=== PATIENT | male | born 1960 | race Caucasian/White ===

== ENCOUNTER 2025-04-28 11:00 | Outpatient (CLI) | payer BC, SELFPAY ==
--- OUTSIDE RECORDS SUMMARY | 2025-04-28 11:05 | XMS_ITS | Encounter Summary ---
Author Organization [facility] Address [address] [place] [address] Care Team Providers Care Frame Polisher Name Role Phone Unavailable Primary Care Provider Unavailabl e Encounter Details Date Type Department Care Team (Late st Contact Info) Description 02/22/2025 Lab Requisition [facility] - DermPath Lab [address] [facility], [place] [address] Berna Rodas MD [address] [facility] 3 [place] [address] Social History Tobacco Use Types Packs/Day Years Used Date Smoking Tobacco: Never Assessed Sex and Gender Information Value Date Recorded Sex Assigned at Not on file Legal Sex Male 10:11 AM CDT Gender Identity Not on file Sexual Orientation Not on file documented as of this encounter Plan of Treatment Not on file documented as of this encounter Procedures Procedure Name Priority Date/Time Associated Diagnosis Comments DERMATOPATHOLOGY Routine 02/22/2025 9:51 AM CDT documented in this encounter Results * DERMATOPATHOLOGY (02/22/2025 9:51 AM CDT) Case Report Dermatopathology Report Case: [id number] Authorizing Provider: Berna Rodas MD Collected: 02/22/2025 09:51 AM Ordering Location: [facility] Physician [facility] - Received: 02/23/2025 10:20 AM DermPath Lab Pathologist: Anika Laurent MD Specimen: Skin, left index finger 11:36 AM CDT DERMATOPATHOLOGY LABORATORY Final Diagnosis Specimen A. 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 The specimen consists of a punch biopsy measuring 3x3x3 mm. Jar 0. 11:36 AM CDT DERMATOPATHOLOGY LABORATORY Microscopic Description Specimen A. SKIN, left index finger: There is psoriasiform hyperplasia of the epidermis with focal parakeratosis and spongiosis. Scattered intracorneal neutrophils as well as intracorneal bacteria are present. The granular layer is focally diminished. There is a superficial, mainly lymphohistiocytic inflammatory infiltrate. Periodic acid-Tana (PAS) stain fails to highlight fungal elements in the available sections. IL-36 immunostain is positive in the superficial aspect of the epidermis. Additional deeper sections were obtained and reviewed. COMMENT: The histological differential diagnosis includes early / partially treated psoriasis with impetiginization, which is somewhat favored, and a chronic eczematous dermatitis. 11:36 AM CDT DERMATOPATHOLOGY LABORATORY Disclaimer An external and internal positive and negative controls are appropriate for the histochemical, immunohistochemical and immunofluorescence stain(s) in this case (if any), except where stated explicitly. The performance characteristics of the stain(s) cited in this report were developed and its performance characteristic determined by the Dermatopathology Laboratory at [facility], directed by Dr. Karolina Rodriguez. These tests need not be, and therefore are not, approved by the [place] Food and Drug Administration. The tests are used for clinical purposes. Billing Codes Specimen Charges Stain Charges 44357 1 18646 04357 1 1 11:36 AM CDT DERMATOPATHOLOGY LABORATORY Embedded Images 11:36 AM CDT DERMATOPATHOLOGY LABORATORY Pathology/Cytolo gy TISSUE SPECIMEN FROM SKIN / Unknown 02/22/2025 9:51 AM CDT 02/23/2025 10:20 AM CDT us Berna Rodas MD LAB - PATHOLOGY/CYTOLOGY OR DERABLES Final Result DERMATOPATHOLOGY LABORATORY [facility] - Department of Dermatology [address], [address] [place] [address], [facility] [phone] documented in this encounter Visit Diagnoses Not on filedocumented in this encounter
--- OUTSIDE RECORDS SUMMARY | 2025-04-28 11:06 | XMS_ITS | Clinical Summary ---
Author Organization [facility] Address [address] [place] [address] Care Team Providers Care Licensed Weigher Name Role Phone Unavailable Primary Care Provider Unavailabl e Source Comments [facility],non-owned Affiliates and Associated Physician Practices is amultiple site organization consisting of ambulatory clinics and hospital sitesin [place], [place], [place] and [place]. This disclosure is being madepursuant to the Care Everywhere program and may not contain all information available regarding this patient. Last updated 18.[facility] Encounters Date Type Department Care Team Description 02/22/2025 Lab Requisition [facility] - DermPath Lab [address] [place] [phone] Berna Rodas MD from Last 3 Months Social History Tobacco Use Types Packs/Day Years Used Date Smoking Tobacco: Never Assessed Sex and Gender Information Value Date Recorded Sex Assigned at Not on file Legal Sex Male 10:11 AM CDT Gender Identity Not on file Sexual Orientation Not on file Plan of Treatment Health Maintenance Due Date Last Done Comments COLOGUARD (AGES 45-75) - COL ON CA SCREENING 1960 COLON MONITORING 1960 COLONOSCOPY - COLON CA SCREENING 1960 CT COLONOGRAPHY - COLON CA SCREENING 1960 Colorectal Cancer Screening 1960 FIT - COLON CA SCREENING 1960 FLEX SIG - COLON CA SCREENING 1960 LIPID TESTING 1960 HIV SCREENING 1975 HEPATITIS C SCREENING 09/24/1978 DTAP/TDAP/TD VACCINES (1 - Tdap) 1979 PNEUMOCOCCAL VACCINE 50+ (1 of 1 - PCV) 2010 ZOSTER VACCINE (1 of 2) 2010 COVID-19 VACCINE ( - 2023-2 5 season) 2024 DEPRESSION SCREENING 11/23/2024 INFLUENZA VACCINE (Season Ended) 2025 Respiratory Syncytial Virus (RSV) Vaccine Pt: or over 60 yrs (1 - 1-dose 75+ series) 2035 HEPATITIS B VACCINE Aged Out No longe r eligible based on patient's age to complete this topic HIB VACCINE Aged Out No longer eligi ble based on patient's age to complete this topic HPV VACCINE Aged Out No longer eligi ble based on patient's age to complete this topic MENINGOCOCCAL (Group B) VACC INE SHARED DECISION-MAKING Aged Out No longer eligibl e based on patient's age to complete this topic MENINGOCOCCAL GROUPS A/C/Y/W VACCINE Aged Out No longer eligible b ased on patient's age to complete this topic Procedures Procedure Name Priority Date/Time Associated Diagnosis Comments DERMATOPATHOLOGY Routine 02/22/2025 9:51 AM CDT from Last 3 Months Results * DERMATOPATHOLOGY (02/22/2025 9:51 AM CDT) Case Report Dermatopathology Report Case: [id number] Authorizing Provider: Berna Rodas MD Collected: 02/22/2025 09:51 AM Ordering Location: [facility] - Received: 02/23/2025 10:20 AM DermPath Lab [...] somewhat favored, and a chronic eczematous dermatitis. 5 11:36 AM CDT DERMATOPATHOLOGY LABORATORY Disclaimer An external and internal positive and negative controls are appropriate for the histochemical, immunohistochemical and immunofluorescence stain(s) in this case (if any), except where stated explicitly. The performance characteristics of the stain(s) cited in this report were developed and its performance characteristic determined by the Dermatopathology Laboratory at [facility], directed by Dr. Karolina Rodriguez. These tests need not be, and therefore are not, approved by the [place] Food and Drug Administration. The tests are used for clinical purposes. Billing Codes Specimen Charges Stain Charges 74193 1 [id number] 44148 1 1 5 11:36 AM CDT DERMATOPATHOLOGY LABORATORY Embedded Images 5 11:36 AM CDT DERMATOPATHOLOGY LABORATORY Pathology/Cytolo gy TISSUE SPECIMEN FROM SKIN / Unknown 02/22/2025 9:51 AM CDT 02/23/2025 10:20 AM CDT Berna Rodas MD LAB - PATHOLOGY/CYTOLOGY OR DERABLES Final Result DERMATOPATHOLOGY LABORATORY [facility] - Department of Dermatology [facility] [address] [place] [address], [address] [place] [address], [facility] [phone] from Last 3 Months Insurance [employer]
[2025-05-01 15:50] LABS: Immunoglobulin A 379 mg/dL (70-320); TTG IGA AB <1.0 U/mL
== END 2025-04-28 11:01 | disposition home or self-care (01) ==
LOC: ANHLAB 11:03
PROVIDERS: PCP Physician Assistant Medical; Visit Provider Nurse Practitioner
DX: R19.7 Diarrhea, unspecified (principal)
CPT/HCPCS: 36415; 82784

== ENCOUNTER 2025-07-11 00:55 | Day surgery (SDC) | payer BC, SELFPAY ==
[2025-06-30 14:50] VITALS: BMI 32.1
--- OUTSIDE RECORDS SUMMARY | 2025-07-11 00:58 | XMS_ITS | Clinical Summary ---
Author Organization [facility] Address [address] [facility] [place] [address] Care Team Providers Care Rn Behavioral Health Name Role Phone Unavailable Primary Care Provider Unavailabl e Source Comments [facility],non-owned Affiliates and Associated Physician Practices is amultiple site organization consisting of ambulatory clinics and hospital sitesin [place], [place], [place] and [place]. This disclosure is being madepursuant to the Care Everywhere program and may not contain all information available regarding this patient. Last updated 18.[facility] Social History Tobacco Use Types Packs/Day Years [...] season) 2024 DEPRESSION SCREENING 11/23/2024 INFLUENZA VACCINE (#1) 2025 Respiratory Syncytial Virus (RSV) Vaccine Pt: [...] on patient's age to complete this topic Insurance [facility] Address: [facility] [id number] [place] [address]
--- OUTSIDE RECORDS SUMMARY | 2025-07-11 00:58 | XMS_ITS | Encounter Summary ---
Author Organization [facility] Address [address] [place] [address] Care Team Providers Care In Service Coordinator Name Role Phone Unavailable Primary Care Provider Unavailabl e Encounter Details Date Type Department Care Team (Late st Contact Info) Description 02/22/2025 Lab Requisition [facility] - DermPath Lab [address] [facility], [place] [address] Berna Rodas MD [address] [facility] 3 [place] [address] Social History Tobacco Use Types Packs/Day Years [...] AM CDT) Case Report Dermatopathology Report Case: [id number] Authorizing Provider: Berna Rodas MD Collected: 02/22/2025 09:51 AM Ordering Location: [facility] Physician [facility] - Received: 02/23/2025 10:20 AM DermPath Lab [...] characteristic determined by the Dermatopathology Laboratory at [facility], directed by Dr. Karolina Rodriguez. These tests need not be, and therefore are not, approved by the [place] Food and Drug Administration. The tests are used for clinical purposes. Billing Codes Specimen Charges Stain Charges 24912 1 39097 17910 1 1 11:36 AM CDT DERMATOPATHOLOGY LABORATORY Embedded Images 11:36 AM CDT DERMATOPATHOLOGY LABORATORY Pathology/Cytolo gy TISSUE SPECIMEN FROM SKIN / Unknown 02/22/2025 9:51 AM CDT 02/23/2025 10:20 AM CDT us Berna Rodas MD LAB - PATHOLOGY/CYTOLOGY OR DERABLES Final Result DERMATOPATHOLOGY LABORATORY [facility] - Department of Dermatology [address] [place] [address], [facility] [phone] documented in this encounter Visit Diagnoses Not on filedocumented in this encounter
--- OUTSIDE RECORDS SUMMARY | 2025-07-11 00:58 | XMS_ITS | Clinical Summary ---
Author Organization [facility] Address [address] [place] [address] Care Team Providers Care Senior Patient Account Representative Name Role Phone Steven Menchaca MD Primary Care Provider [phone] Social History Tobacco Use Types Packs/Day Years Used Date Smoking Tobacco: Never Assessed Sex and Gender Information Value Date Recorded Sex Assigned at Not on file Legal Sex Male 7:43 PM CDT Gender Identity Not on file Sexual Orientation Not on file Last Filed Vital Signs Vital Sign Reading Time Taken Comments Blood Pressure 110/70 11/23/2012 11:13 AM CYCLING INSTRUCTOR Pulse 67 11/23/2012 11:13 AM CYCLING INSTRUCTOR Temperature - - Respiratory Rate - - Oxygen Saturation - - Inhaled Oxygen Concentration - - Weight 122 kg (269 lb) 11/23/2012 11:13 AM CYCLING INSTRUCTOR Height - - Body Mass Index - - Plan of Treatment Health Maintenance Due Date Last Done Comments Colorectal Cancer Screening Colonoscopy (10 Years) 1960 Annual Physical 1963 Hepatitis C 1978 DTaP, Tdap and Td Vaccines ( 1 - Tdap) 1979 Pneumococcal Vaccine: 50+ Ye ars (1 of 1 - PCV) 2010 Zoster Vaccines (1 of 2) 2010 COVID-19 Vaccine ( - 2023-2 5 season) 2024 RSV Immunization or 60+ Years (1 - 1-dose 75+ series) 2035 Meningococcal B Vaccine Aged Out No l onger eligible based on patient's age to complete this topic Meningococcal Vaccine Aged Out No angelito inés eligible based on patient's age to complete this topic RSV Immunizations Under 20 Months Aged Out No longer eligible based on patient's age to complete this topic [place] [address] [place] [address] Care Teams Senior Patient Account Representative Relationship Specialty Start Date End Date Steven Menchaca MD [address] [place] [address] PCP - General INTERNAL MEDICINE 12/03/21
[2025-07-11 12:29] VITALS: BP 127/72; PULSE 57; RESP 18; TEMP 36.1; O2SAT 100
--- NOTE | 2025-07-11 12:41 | PM.HPGS ---
History of Present Illness History of Present Illness Consent: Risks, benefits, and alternatives have been discussed and questions answered. Patient agrees to proceed with procedure. Chief complaint: Hemorrhage of anus and rectum Narrative: Gilson Westbrook is a 64 year old male here for colonoscopy because loose stool, serology for celiac negative Review of Systems Review of Systems: All systems reviewed & are unremarkable except as noted in HPI and below PMFSH Past Medical History Medical History (Updated 07/11/25 @ 12:42 by Anibal Fleming MD) Loose stools Erectile dysfunction Otalgia Otitis externa Vitamin D deficiency Vitamin B12 deficiency Dyslipidemia Calcaneal spur of foot Acute arthritis Bronchitis Diabetes Family History Family History Father No problems noted. Mother No problems noted. Social History Social History Social History: 03/21/25 very confident with medical forms Smoking status: Never smoker Smokeless tobacco user: chewing tobacco Alcohol intake: current Drinks per week: 2 Substance use: never Substance use type: does not use Do You Feel Safe in your Home?: Yes Lack of Transportation: No Lack of Food: Never True Current Housing: I Have Housing Concerned About Future Housing: No Difficulty Paying Gas/Electric Bills: No Difficulty Paying for Meds: No Currently Unemployed: No Education: Bachelor's Degree Difficulty w/ Childcare or Family Care: No Living arrangements: with family Occupation/Education: retired Gender identity (if verbalized by the patient): Male Spiritual care concerns: No Meds Home Medications and Allergies Home Medications ?Medication ?Instructions ?Recorded ?Confirmed ?Type aspirin 81 mg chewable tablet 81 mg PO DAILY 11/18/22 06/30/25 History cholecalciferol (vitamin D3) 50 25 mcg PO DAILY 09/25/23 06/30/25 History mcg (2,000 unit) capsule Keily's Leg Cramp PM 1 cap BYMOUTH DAILY PRN leg cramps 09/28/23 06/30/25 History Lactobacillus rhamnosus-Bifidobac. 1 cap PO DAILY 09/28/23 06/30/25 History animalis 3 billion cell capsule ([employer]) Farzad red fish oil 1 cap BYMOUTH DAILY OTC 09/28/23 06/30/25 History Refresh relieva 1 drp EACH EYE .q12 09/28/23 06/30/25 History mecobalamin (vitamin B12) 1,000 1,000 mcg PO DAILY 09/28/23 06/30/25 History mcg chewable tablet wheat dextrin 5 gram/7.4 gram oral 2 g PO Q12H 09/28/23 06/30/25 History powder (Benefiber Healthy Shape) dapagliflozin propanediol 10 mg 10 mg PO DAILY #90 tabs 03/07/25 06/30/25 Rx tablet (Farxiga) metformin 500 mg tablet,extended 1,000 mg (2 x 500 mg) PO BID #360 03/24/25 06/30/25 Rx release 24 hr tabs sildenafil 100 mg tablet 50 mg (1/2 x 100 mg) PO DAILY PRN 03/24/25 06/30/25 Rx sexual activity #90 tabs tapinarof 1 % topical cream 1 applic topical DAILY 03/24/25 06/30/25 History triamcinolone acetonide 0.1 % 1 applic topical BID 03/24/25 06/30/25 History topical cream rosuvastatin 5 mg tablet 5 mg PO QHS #90 tabs 05/03/25 06/30/25 Rx Allergies Allergy/AdvReac Type Severity Reaction Status Date / Time No Known Allergies Allergy Verified 07/11/25 12:28 Vital Signs Vital Signs - 24 hr 07/11/25 12:29 Temperature 97 F L Pulse Rate 57 L Respiratory Rate 18 Blood Pressure 127/72 Pulse Oximetry 100 Oxygen Delivery Room Air Exam Const: General: comfortable and no acute distress HENMT: Face/Nose/Sinus: Normal nares present Eyes: General: appearance normal, both eyes and all related structures Neck: Neck: no JVD Resp: Auscultation: clear to auscultation bilaterally Cardio: Rate: regular rate Rhythm: regular rhythm GI: Inspection: non-distended GI Palp: Yes Soft to palpation Skin: General skin exam: normal color Neuro: Speech: normal speech Extrem: General: normal to inspection Psych: Mental Status: mental status grossly normal Assessment and Plan Assessment and plan (1) Loose stools: Code(s): R19.5 - Other fecal abnormalities Status: Acute Assessment and Plan: colonoscopy
[2025-07-11] MEDS: LACTATED RINGERS 1,000 ML 150 ML IV CONT (12:43)
--- NOTE | 2025-07-11 12:44 | WPDANESEPPF ---
Anes - Initial Pre Proc Eval Procedure: Operation Date: 07/11/25 13:30 Proposed Procedures p Diagnostic Colonoscopy - Anibal Fleming MD Date/Time: 07/11/25 12:44 Surgeon: Anibal Fleming MD Pre Op Diagnosis: Hemorrhage of anus and rectum Patient Data Age: 64 Gender: M Height: 1.8 m Weight: 102.5 kg Last Vital Signs Temp 36.1 C L 07/11/25 12:29 Pulse 57 L 07/11/25 12:29 Resp 18 07/11/25 12:29 BP 127/72 07/11/25 12:29 Pulse Ox 100 07/11/25 12:29 O2 Del Method Room Air 07/11/25 12:29 Allergies Allergy/AdvReac Type Severity Reaction Status Date / Time No Known Allergies Allergy Verified 07/11/25 12:28 Home Medications ?Medication ?Instructions ?Recorded ?Confirmed ?Type aspirin 81 mg chewable tablet 81 mg PO DAILY 11/18/22 06/30/25 History cholecalciferol (vitamin D3) 50 25 mcg PO DAILY 09/25/23 06/30/25 History mcg (2,000 unit) capsule Keily's Leg Cramp PM 1 cap BYMOUTH DAILY PRN leg cramps 09/28/23 06/30/25 History Lactobacillus rhamnosus-Bifidobac. 1 cap PO DAILY 09/28/23 06/30/25 History animalis 3 billion cell capsule ([employer]) Farzad red fish oil 1 cap BYMOUTH DAILY OTC 09/28/23 06/30/25 History Refresh relieva 1 drp EACH EYE .q12 09/28/23 06/30/25 History mecobalamin (vitamin B12) 1,000 1,000 mcg PO DAILY 09/28/23 06/30/25 History mcg chewable tablet wheat dextrin 5 gram/7.4 gram oral 2 g PO Q12H 09/28/23 06/30/25 History powder (Benefiber Healthy Shape) dapagliflozin propanediol 10 mg 10 mg PO DAILY #90 tabs 03/07/25 06/30/25 Rx tablet (Farxiga) metformin 500 mg tablet,extended 1,000 mg (2 x 500 mg) PO BID #360 03/24/25 06/30/25 Rx release 24 hr tabs sildenafil 100 mg tablet 50 mg (1/2 x 100 mg) PO DAILY PRN 03/24/25 06/30/25 Rx sexual activity #90 tabs tapinarof 1 % topical cream 1 applic topical DAILY 03/24/25 06/30/25 History triamcinolone acetonide 0.1 % 1 applic topical BID 03/24/25 06/30/25 History topical cream rosuvastatin 5 mg tablet 5 mg PO QHS #90 tabs 05/03/25 06/30/25 Rx Laboratory Tests 07/11/25 12:41 POC Capillary Glucose 126 H mg/dl (65-105) Patient hx anesthesia problems: none Family hx anesthesia problems: none Results Review: All pre-operative results and documents have been reviewed as part of the pre-operative evaluation. [facility] Past Medical History Medical History Loose stools Erectile dysfunction Otalgia Otitis externa Vitamin D deficiency Vitamin B12 deficiency Dyslipidemia Calcaneal spur of foot Acute arthritis Bronchitis Diabetes Family History Family History Father No problems noted. Mother No problems noted. Social History Social History Social History: 03/21/25 very confident with medical forms Smoking status: Never smoker Smokeless tobacco user: chewing tobacco Alcohol intake: current Drinks per week: 2 Substance use: never Substance use type: does not use Do You Feel Safe in your Home?: Yes Lack of Transportation: No Lack of Food: Never True Current Housing: I Have Housing Concerned About Future Housing: No Difficulty Paying Gas/Electric Bills: No Difficulty Paying for Meds: No Currently Unemployed: No Education: Bachelor's Degree Difficulty w/ Childcare or Family Care: No Living arrangements: with family Occupation/Education: retired Gender identity (if verbalized by the patient): Male Spiritual care concerns: No Anes - Eval Final PreProcedure Day of Procedure 07/11/25 12:44 Patient weight: obese Heart: regular rate and rhythm Lungs: clear to auscultation Airway: Mallampati scale class II Neurological: alert and oriented Last oral intake: >/= 8 hours ASA classification: II Emergent: no Anesthetic plan: proceed Anesthesia type and monitoring: general GIVS and standard monitoring Results Review: All pre-operative results and documents have been reviewed as part of the pre-operative evaluation. Informed Consent: The patient's anesthetic plan and its attendant risks and benefits were discussed with the patient/family/POA. Questions were solicited and answers provided to the satisfaction of the patient/family/POA.
--- NOTE | 2025-07-11 12:52 | S_PTH ---
PATIENT: Gilson Westbrook LOC: [facility] Giraldo#:[id number] AGE/SX: 64/M ROOM: RE07/11/[address]: Anibal Fleming MD : 1960 BED: DIS: 07/11/2025 SPEC #: [id number] RECD: 07/11/25 13:21 STATUS: KAELYN REQ #: [id number] VICKIE: 07/11/25 12:[address]: Anibal Fleming DEPT: [facility] Surgical RECD BY: Logan Fox ENTERED: 07/11/25 13:22 SP TYPE: Surgical OTHR DR: Pooja Petit PA-C Tissues: A - Colon Biopsy B - Colon Polypectomy C - Colon Polypectomy Procedures: Hematoxylin and Eosin Stain Gross and Microscopic Level 4
[2025-07-11 12:58] VITALS: BP 113/69; PULSE 54; RESP 18; O2SAT 100
[2025-07-11 13:08] VITALS: BP 113/70; PULSE 52; RESP 20; O2SAT 100
[2025-07-11 13:18] VITALS: BP 113/69; PULSE 60; RESP 17; O2SAT 100
== END 2025-07-11 13:28 | disposition home or self-care (01) ==
PROVIDERS: PCP Physician Assistant Medical; Referring Provider Nurse Practitioner; Visit Provider Internal Medicine Gastroenterology
PROC: 0DJD8ZZ Inspection of Lower Intestinal Tract, Via Natural or Artificial Opening Endoscopic (ICD-10-PCS; CPT 45378; principal; 2025-07-11 13:30)
DX: D12.3 Benign neoplasm of transverse colon (principal); D12.4 Benign neoplasm of descending colon; E78.5 Hyperlipidemia, unspecified; E11.9 Type 2 diabetes mellitus without complications; N52.9 Male erectile dysfunction, unspecified; E55.9 Vitamin D deficiency, unspecified; E53.8 Deficiency of other specified B group vitamins; M19.90 Unspecified osteoarthritis, unspecified site; F17.220 Nicotine dependence, chewing tobacco, uncomplicated; E66.9 Obesity, unspecified; Z68.31 Body mass index [BMI] 31.0-31.9, adult; Z79.82 Long term (current) use of aspirin; Z79.84 Long term (current) use of oral hypoglycemic drugs
CPT/HCPCS: 45380; 45385; 82948; 88305; J2704; J7120